=== PATIENT | female | born 1940 | race Caucasian/White ===

== ENCOUNTER 2017-09-06 12:59 | Outpatient (CLI) | payer MEDICARE ==
--- NOTE | 2017-09-06 16:05 | RAD ---
LUMBAR SPINE THREE VIEWS: History: T12 fracture. Back pain. Comparison: 06-24-17 FINDINGS: Anterior wedge compression deformity at the T12 vertebra again noted. The degree of compression does not appear significantly changed when compared to 06-24-17. Lumbar vertebrae maintain height and alignment. Mild degenerative changes are again noted with loss o f disc space, which is most pronounced at L4-5 and L5-S1. Mild to moderate degenerative osteophytes a nd facet hypertrophy again noted. Aneurysmal dilatation of the abdominal aorta is noted. Its maximal dimension measures approximately 3.0 cm. IMPRESSION: 1. Wedge compression of the T1 vertebra does not appear significantly changed. 2. Moderate degenerative change of the lumbar spine is stable. 3. Calcified aorta with aneurysmal dilatation of the abdominal aorta again noted. POS: [facility]
== END 2017-09-06 13:00 | disposition home or self-care (01) ==
LOC: MADLAB 12:59
PROVIDERS: ATTEND Neurological Surgery
DX: S22.008A Other fracture of unspecified thoracic vertebra, initial encounter for closed fracture (principal); M47.816 Spondylosis without myelopathy or radiculopathy, lumbar region; I71.4 Abdominal aortic aneurysm, without rupture
CPT/HCPCS: 72100

== ENCOUNTER 2018-04-11 12:04 | Outpatient (CLI) | payer MEDICARE ==
[2018-04-12 06:47] LABS: White Blood Cell (WBC) Count 12.4 thou/uL (4.8-10.8)
[2018-04-12 06:48] LABS: #Basophils 0.1 thou/uL (0.0-0.2); #Eosinphils 0.2 thou/uL (0.0-0.7); #Monocytes 0.6 thou/uL (0.11-0.59); #Neutrophils 7.6 thou/uL (1.40-6.50); %Basophils 0.8 % (0.0-1.0); %Eosinophils 1.2 % (0.0-10.0); %Lymphocytes 32.4 % (21.0-51.0); %Monocytes 4.9 % (0.0-10.0); %Neutrophils 60.6 % (42.0-75.0); Hemoglobin 13.6 g/dL (12.0-16.0); Mean Corpuscular HGB CONC 33.5 g/dL (32.0-36.0); Mean Corpuscular Hemoglobin 31.1 pg (27.0-31.0); Mean Corpuscular Volume 92.8 fL (78.0-98.0); Mean Platelet Volume 6.8 fL (7.4-10.4); Platelet Count 271 thou/uL (130-400); RBC Distribution Width 11.1 % (11.5-14.5); Red Blood Cell (RBC) Count 4.36 mill/uL (4.20-5.40)
[2018-04-12 06:50] LABS: BUN (Urea Nitrogen) 12 mg/dL (9.8-20.1); Bilirubin, Total 0.6 mg/dL (0.2-1.2); Calc. Creatinine Clearance 0 mL/min (70-130); Calcium 9.6 mg/dL (7.8-10.44); Carbon Dioxide 21 mmol/L (23-31); Chloride 105 mmol/L (98-107); Estimated GFR-MDRD 70; Glucose 96 mg/dL (83-110); Protein, Total 6.8 g/dL (5.8-8.1); Sodium 139 mmol/L (136-145)
[2018-04-12 06:51] LABS: ALT (SGPT) 14 U/L (8-55); AST (SGOT) 17 U/L (5-34); Albumin 4.2 g/dL (3.4-4.8); Alkaline Phosphatase 71 U/L (40-150); Globulin 2.6 g/dL (2.4-3.5)
[2018-04-12 06:52] LABS: Anion Gap 17 mmol/L (10-20)
== END 2018-04-11 12:05 | disposition home or self-care (01) ==
LOC: MADEKG 12:04
DX: M54.16 Radiculopathy, lumbar region (principal)
CPT/HCPCS: 36415; 80053; 85025